=== PATIENT | male | born 1965 | race Caucasian/White ===

== ENCOUNTER 2017-03-26 14:02 | Emergency (ER) | payer MEDICAID ==
[~2017-03-26] VITALS: Ht 175.3 cm; Wt 90.7 kg
[2017-03-26 14:15] VITALS: BP_SYST 132
[2017-03-26 14:45] VITALS: BP_SYST 130
== END 2017-03-26 14:45 ==
LOC: SED 14:02
DX: S09.90XD Unspecified injury of head, subsequent encounter (principal); Y04.2XXD Assault by strike against or bumped into by another person, subsequent encounter
CPT/HCPCS: 70450-TC; 99284